=== PATIENT | male | born 1950 | race Caucasian/White ===

== ENCOUNTER → 2017-12-29 | Outpatient (CLI) | payer MEDICARE, OTHER | END | disposition home or self-care (01) | LOC: CVU 09:57 | PROVIDERS: ATTEND Internal Medicine Cardiovascular Disease | DX: I08.3 Combined rheumatic disorders of mitral, aortic and tricuspid valves (principal); I11.9 Hypertensive heart disease without heart failure; I48.91 Unspecified atrial fibrillation; I63.9 Cerebral infarction, unspecified; Q27.30 Arteriovenous malformation, site unspecified; E78.5 Hyperlipidemia, unspecified | CPT/HCPCS: 93306 ==

== ENCOUNTER 2018-03-11 06:41 | Observation (INO) | payer MEDICARE, OTHER ==
[~2018-03-11] VITALS: Ht 177.8 cm; Wt 99.6 kg
[2018-03-11] MEDS ORDERED: SODIUM CHLORIDE 0.9% 1,000 ML IV SCH (06:56)
[2018-03-11 07:06] VITALS: BP 118/67
[2018-03-11] MEDS ORDERED: PROTAMINE SULFATE 10 MG/ML, 5ML ONE (07:16)
[2018-03-11] MEDS ORDERED: FENO145T32 PO (07:22)
[2018-03-11] MEDS ORDERED: DIVA-61 PO (07:22)
[2018-03-11] MEDS ORDERED: APIX5TAB PO (07:22)
[2018-03-11] MEDS ORDERED: LAMO100T PO (07:22)
[2018-03-11] MEDS ORDERED: PRAV40TA2 PO (07:22)
[2018-03-11] MEDS ORDERED: AMIO200T7 PO (07:22)
[2018-03-11] MEDS ORDERED: METO25TA35 PO (07:22)
[2018-03-11] MEDS ORDERED: ENAL5TAB PO (07:22)
[2018-03-11] MEDS ORDERED: Tylenol PM PO (07:22)
[2018-03-11] MEDS ORDERED: SPIR25TA5 PO (07:22)
[2018-03-11] MEDS ORDERED: ESZO3TAB28 PO (07:22)
[2018-03-11] MEDS ORDERED: FENTANYL PF 250 MCG/5ML ONE (07:57)
[2018-03-11] MEDS ORDERED: MIDAZOLAM 1 MG/ML, 2ML ONE (07:57)
[2018-03-11] MEDS ORDERED: ROCURONIUM 10MG/ML,5ML ONE (08:03)
[2018-03-11] MEDS ORDERED: ONDANSETRON 2MG/ML, 2ML ONE (08:03)
[2018-03-11] MEDS ORDERED: DEXAMETHASONE 4 MG/ML, 1ML ONE (08:03)
[2018-03-11] MEDS ORDERED: HEPARIN 1,000 UNITS/ML, 10ML ONE (08:03)
[2018-03-11] MEDS ORDERED: SUCCINYLCHOLINE 20 MG/ML, 10ML ONE (08:03)
[2018-03-11] MEDS ORDERED: PROPOFOL 10 MG/ML, 20ML ONE (08:03)
[2018-03-11] MEDS ORDERED: EPHEDRINE 50 MG/ML, 1ML ONE (08:12)
[2018-03-11] MEDS ORDERED: LIDOCAINE/PF 1%, 30ML ONE (08:29)
[2018-03-11] MEDS ORDERED: ACETAMINOPHEN 325 MG TABLET PO PRN ×2 (10:00→10:30)
[2018-03-11] MEDS ORDERED: ZOLPIDEM 5MG TABLET PO PRN (10:00)
[2018-03-11] MEDS ORDERED: APIXABAN 5 MG TABLET ONE (10:02)
[2018-03-11] MEDS ORDERED: ONDANSETRON 2MG/ML, 2ML IV PRN (10:30)
[2018-03-11] MEDS ORDERED: hydrALAzine 20 MG/ML, 1ML IV PRN (10:30)
[2018-03-11] MEDS ORDERED: MIDAZOLAM 1 MG/ML, 2ML IV PRN (10:30)
[2018-03-11] MEDS ORDERED: PROMETHAZINE 25 MG/ML, 1ML IV PRN (10:30)
[2018-03-11] MEDS ORDERED: ALBUTEROL SULFATE 2.5 MG/3 ML NPPB PRN (10:30)
[2018-03-11] MEDS ORDERED: FENTANYL PF 100 MCG/2ML IV PRN (10:30)
[2018-03-11] MEDS ORDERED: PROMETHAZINE 12.5 MG SUPP PR PRN (10:30)
[2018-03-11] MEDS ORDERED: LORazepam 2 MG/ML, 1ML IVPush PRN (10:30)
[2018-03-11] MEDS ORDERED: LABETALOL 5MG/ML, 20ML IV PRN (10:30)
[2018-03-11] MEDS ORDERED: EPHEDRINE 50 MG/ML, 1ML IVPush PRN (10:30)
[2018-03-11] MEDS ORDERED: HYDROmorphone 1 MG/ML, 1ML IV PRN (10:30)
[2018-03-11] MEDS ORDERED: MORPHINE SULFATE 4 MG/ML, 1ML IVPush PRN (10:30)
[2018-03-11] MEDS: APIXABAN 5 MG TABLET PO SCH ×2 (10:30→21:47)
[2018-03-11] MEDS ORDERED: HALOPERIDOL 5 MG/ML IV PRN (10:30)
[2018-03-11] MEDS ORDERED: MEPERIDINE/PF 25MG/0.5ML IVPush PRN (10:30)
[2018-03-11] MEDS ORDERED: OXYcodone 5 MG/5 ML ORAL.SOL UDC PO PRN (10:30)
[2018-03-11] MEDS ORDERED: ONDANSETRON ODT 8 MG PO PRN (10:30)
[2018-03-11] MEDS ORDERED: OXYcodone 5 MG/5 ML ORAL.SOL UDC ONE (10:40)
[2018-03-11] MEDS ORDERED: FENTANYL PF 100 MCG/2ML ONE (10:51)
[2018-03-11 13:26] VITALS: BP 111/53
[2018-03-11 19:44] VITALS: BP 139/79
[2018-03-11] MEDS ORDERED: SPIRONOLACTONE 25 MG TABLET PO SCH (21:00)
[2018-03-11] MEDS ORDERED: DIVALPROEX SODIUM 500 MG PO SCH (21:00)
[2018-03-11] MEDS ORDERED: ENALAPRIL 5MG TABLET PO SCH (21:00)
[2018-03-11] MEDS ORDERED: TEMPLATE NON-FORMULARY MED. (Eszopiclone** (Lunesta**) 3 MG) PO SCH (21:00)
[2018-03-11] MEDS ORDERED: LAMOTRIGINE 100 MG PO SCH (21:00)
[2018-03-11] MEDS ORDERED: FENOFIBRATE 145 MG PO SCH (21:00)
[2018-03-11] MEDS ORDERED: PRAVASTATIN 40 MG TABLET PO SCH (21:00)
[2018-03-11] MEDS ORDERED: FENOFIBRATE 145 MG TABLET HOMEMEDPO SCH (21:30)
[2018-03-11] MEDS ORDERED: LAMOTRIGINE 200 MG TABLET HOMEMEDPO SCH ×2 (21:35→21:36)
[2018-03-11] MEDS: DIVALPROEX 500 MG TABLET.DR HOMEMEDPO SCH (21:48)
[2018-03-12 02:00] VITALS: BP 118/61
[2018-03-12] MEDS: APIXABAN 5 MG TABLET PO SCH (08:17)
[2018-03-12] MEDS: DIVALPROEX 500 MG TABLET.DR HOMEMEDPO SCH (08:18)
[2018-03-12 09:57] VITALS: BP 126/71
== END 2018-03-12 12:40 | disposition home or self-care (01) ==
LOC: CACL 06:41 → ORIP 09:54 → 5SO 11:40 → DCLOUNGE 03-12 12:40
PROVIDERS: ADMIT Internal Medicine Cardiovascular Disease; ATTEND Internal Medicine Cardiovascular Disease
DX: I48.91 Unspecified atrial fibrillation (principal); I48.92 Unspecified atrial flutter; I42.9 Cardiomyopathy, unspecified
CPT/HCPCS: 85347; 93308; 93321; 93325; 93613; 93655; 93656; 93662; C1730; C1731; C1732; C1759; C1766; C1893; C1894; G0378; J0330; J1100; J1644; J2250; J2405; J2704; J2720; J3010; J3490